=== PATIENT | female | born 1930 | race Caucasian/White ===

== ENCOUNTER 2017-12-28 22:00 | Inpatient (IN) ==
[2017-12-28 22:28] LABS: Basophils # 0.1 10*3/uL (0.0-0.2); Basophils % 0.6 % (0.0-0.8); Eosinophils # 0.2 10*3/uL (0.0-0.87); Eosinophils % 2.3 % (0.00-10.9); Hematocrit 32.5 VOL% (35.7-47.0); Hemoglobin 10.6 GM/DL (12.0-16.0); Immature Granulocytes Absolute 0.08 #; Lymphocytes # 1.5 10*3/uL (1.4-4.0); Lymphocytes % 19.1 % (21.3-54.2); Mean Corpuscular HGB Conc 32.6 GM/DL (32-36); Mean Corpuscular Hemoglobin 31 PG (27-34); Mean Corpuscular Volume 94.8 FL (87-102); Mean Platelet Volume 11.4 FL (9.6-12.0); Monocytes # 0.6 10*3/uL (0.11-0.8); Monocytes % 8.1 % (1.7-12.7); Neutrophils # 5.5 10*3/uL (1.4-7.4); Neutrophils % 68.9 % (38.7-73.9); Platelet Count 263 T/CUMM (130-400); Red Blood Count 3.43 MC/CUMM (3.8-5.5); Red Cell Distribution Width 12.3 % (9.3-17.3); White Blood Count 7.9 T/CUMM (4-12)
[2017-12-28 22:35] LABS: PT Patient Result 10.3 SECS; Partial Thromboplastin Time 25.2 SECS (0-40)
[2017-12-28] MEDS ORDERED: MORPHINE 4 MG/1 ML VIAL IV STA (22:43)
[2017-12-28 22:50] LABS: Alanine Aminotransferase 16 U/L (13-56); Albumin 3.3 G/DL (3.4-5.0); Alkaline Phosphatase 100 U/L (45-117); Aspartate Amino Transferase 29 U/L (0-37); Bilirubin,Total < 0.39 MG/DL (0.2-1.0); Blood Urea Nitrogen 19 MG/DL (7-18); Calcium 8.5 MG/DL (8.5-10.1); Glucose 122 MG/DL (74-106); Osmolality,Calculated 279.5 MOS/KG (273-304); Sodium 139 MMOL/L (136-145); Total Protein 6.2 G/DL (6.4-8.3)
[2017-12-28 22:52] LABS: Apearance,Urine CLEAR (Clear); Bilirubin,Urine Negative (Negative); Blood, Urine Negative (Negative); Glucose,Urine (UA) Negative (Negative); Ketones,Urine Negative (Negative); Mucus,Urine Occasional /LPF (Occasional); Nitrite,Urine Negative (Negative); Protein,Urine Negative; RBC,Urine 1 /HPF (0-4); Urine Color Yellow (Yellow); Urine Specific Gravity 1.011 (1.001-1.035); Urine Urobilinogen < 2.0 EU/DL (0.2-1.0); WBC,Urine <1 /HPF (0-6)
[2017-12-29] MEDS ORDERED: hydrALAZINE 20 MG/1 ML VIAL IV PRN ×2 (00:01→01:16)
[2017-12-29] MEDS ORDERED: ONDANSETRON 4 MG/2 ML VIAL IV PRN (01:11)
[2017-12-29] MEDS: MORPHINE 4 MG/1 ML VIAL IV PRN ×4 (02:29→21:15)
[2017-12-29] MEDS: SODIUM CHLORIDE 0.9% 1,000 ML IV SCH ×3 (02:29→19:52)
[2017-12-29 05:39] LABS: Basophils # 0.1 10*3/uL (0.0-0.2); Basophils % 0.4 % (0.0-0.8); Eosinophils % 0.1 % (0.00-10.9); Hematocrit 28.3 VOL% (35.7-47.0); Hemoglobin 9.3 GM/DL (12.0-16.0); Immature Granulocytes % 0.6 %; Immature Granulocytes Absolute 0.08 #; Lymphocytes # 0.8 10*3/uL (1.4-4.0); Lymphocytes % 5.5 % (21.3-54.2); Mean Corpuscular HGB Conc 32.9 GM/DL (32-36); Mean Corpuscular Hemoglobin 31 PG (27-34); Mean Corpuscular Volume 93.7 FL (87-102); Mean Platelet Volume 11.2 FL (9.6-12.0); Monocytes # 0.9 10*3/uL (0.11-0.8); Monocytes % 6.7 % (1.7-12.7); Neutrophils # 11.9 10*3/uL (1.4-7.4); Neutrophils % 86.7 % (38.7-73.9); Platelet Count 219 T/CUMM (130-400); Red Blood Count 3.02 MC/CUMM (3.8-5.5); Red Cell Distribution Width 12.3 % (9.3-17.3); White Blood Count 13.7 T/CUMM (4-12)
[2017-12-29 06:06] LABS: Calcium 8.3 MG/DL (8.5-10.1); Osmolality,Calculated 278.7 MOS/KG (273-304); Potassium 3.8 MMOL/L (3.5-5.1)
[2017-12-29] MEDS: NEBIVOLOL 10 MG TABLET PO SCH (09:16)
[2017-12-29] MEDS: LISINOPRIL 20 MG TABLET PO SCH (09:16)
[2017-12-29] MEDS: ENOXAPARIN 40 MG/0.4 ML SYRINGE SUBCUT SCH (11:20)
[2017-12-29] MEDS: MEMANTINE 10 MG TABLET PO SCH ×2 (11:20→21:15)
[2017-12-29 13:09] LABS: Apearance,Urine CLEAR (Clear); Bilirubin,Urine Negative (Negative); Blood, Urine Small mg/dL (Negative); Glucose,Urine (UA) Negative (Negative); Ketones,Urine Negative (Negative); Mucus,Urine Occasional /LPF (Occasional); Nitrite,Urine Negative (Negative); Protein,Urine Negative; RBC,Urine 2 /HPF (0-4); Squamous Epithelial Cell,Urine Occasional /HPF (0-10); Urine Color Yellow (Yellow); Urine Specific Gravity 1.013 (1.001-1.035); Urine Urobilinogen < 2.0 EU/DL (0.2-1.0); WBC,Urine 7 /HPF (0-6)
[2017-12-29] MEDS ORDERED: ceFAZolin 1,000 MG VIAL ONE (13:25)
[2017-12-29 14:55] LABS: Basophils % 0.3 % (0.0-0.8); Eosinophils % 0.2 % (0.00-10.9); Hematocrit 27.8 VOL% (35.7-47.0); Hemoglobin 9.1 GM/DL (12.0-16.0); Immature Granulocytes % 0.4 %; Immature Granulocytes Absolute 0.05 #; Mean Corpuscular HGB Conc 32.7 GM/DL (32-36); Mean Corpuscular Hemoglobin 31 PG (27-34); Mean Corpuscular Volume 93.3 FL (87-102); Mean Platelet Volume 11.9 FL (9.6-12.0); Monocytes % 8.9 % (1.7-12.7); Neutrophils # 9.2 10*3/uL (1.4-7.4); Neutrophils % 81.2 % (38.7-73.9); Platelet Count 232 T/CUMM (130-400); Red Blood Count 2.98 MC/CUMM (3.8-5.5); Red Cell Distribution Width 12.4 % (9.3-17.3); White Blood Count 11.3 T/CUMM (4-12)
[2017-12-29] MEDS ORDERED: MIDAZOLAM 2 MG/2 ML VIAL ONE (15:00)
[2017-12-29] MEDS ORDERED: KETAMINE 500 MG/10 ML VIAL ONE (15:00)
[2017-12-29] MEDS ORDERED: FUROSEMIDE 20 MG/2 ML VIAL ONE (15:00)
[2017-12-29] MEDS ORDERED: BUPIVACAINE SPINAL 0.75% 2 ML AMP SPINAL ONE (15:00)
[2017-12-29] MEDS ORDERED: ETOMIDATE 40 MG/20 ML VIAL IV ONE (15:00)
[2017-12-29] MEDS ORDERED: PHENYLEPHRINE 1 MG/10 ML SYRINGE IV ONE (15:01)
[2017-12-29] MEDS: DONEPEZIL 10 MG TABLET PO SCH (21:15)
[2017-12-29] MEDS: SIMVASTATIN 20 MG TABLET PO SCH (21:15)
[2017-12-30] MEDS: MORPHINE 4 MG/1 ML VIAL IV PRN ×6 (04:37→23:54)
[2017-12-30] MEDS: SODIUM CHLORIDE 0.9% 1,000 ML IV SCH ×3 (04:38→20:38)
[2017-12-30 05:46] LABS: Basophils % 0.2 % (0.0-0.8); Eosinophils % 0.1 % (0.00-10.9); Hematocrit 22.5 VOL% (35.7-47.0); Hemoglobin 7.3 GM/DL (12.0-16.0); Immature Granulocytes % 0.5 %; Immature Granulocytes Absolute 0.06 #; Lymphocytes # 0.9 10*3/uL (1.4-4.0); Mean Corpuscular HGB Conc 32.4 GM/DL (32-36); Mean Corpuscular Hemoglobin 30 PG (27-34); Mean Corpuscular Volume 93.4 FL (87-102); Mean Platelet Volume 11.1 FL (9.6-12.0); Monocytes # 1.5 10*3/uL (0.11-0.8); Monocytes % 12.7 % (1.7-12.7); Neutrophils # 9.6 10*3/uL (1.4-7.4); Neutrophils % 79.5 % (38.7-73.9); Platelet Count 191 T/CUMM (130-400); Red Blood Count 2.41 MC/CUMM (3.8-5.5); Red Cell Distribution Width 12.4 % (9.3-17.3); White Blood Count 12.1 T/CUMM (4-12)
[2017-12-30] MEDS: NEBIVOLOL 10 MG TABLET PO SCH (09:15)
[2017-12-30] MEDS: LISINOPRIL 20 MG TABLET PO SCH (09:15)
[2017-12-30] MEDS: MEMANTINE 10 MG TABLET PO SCH ×2 (09:15→20:05)
[2017-12-30] MEDS: ENOXAPARIN 40 MG/0.4 ML SYRINGE SUBCUT SCH (09:17)
[2017-12-30] MEDS ORDERED: ACETAMINOPHEN 325 MG TABLET PO PRN (15:16)
[2017-12-30 16:57] LABS: Basophils % 0.1 % (0.0-0.8); Eosinophils % 0.1 % (0.00-10.9); Hematocrit 20.1 VOL% (35.7-47.0); Hemoglobin 6.6 GM/DL (12.0-16.0); Immature Granulocytes % 0.7 %; Lymphocytes # 0.8 10*3/uL (1.4-4.0); Lymphocytes % 5.7 % (21.3-54.2); Mean Corpuscular HGB Conc 32.8 GM/DL (32-36); Mean Corpuscular Hemoglobin 31 PG (27-34); Mean Corpuscular Volume 93.5 FL (87-102); Mean Platelet Volume 11.9 FL (9.6-12.0); Monocytes # 1.8 10*3/uL (0.11-0.8); Monocytes % 12.8 % (1.7-12.7); Neutrophils # 11.6 10*3/uL (1.4-7.4); Neutrophils % 80.6 % (38.7-73.9); Platelet Count 195 T/CUMM (130-400); Red Blood Count 2.15 MC/CUMM (3.8-5.5); Red Cell Distribution Width 12.5 % (9.3-17.3); White Blood Count 14.4 T/CUMM (4-12)
[2017-12-30] MEDS ORDERED: SODIUM CHLORIDE 0.9% 1,000 ML IV PRN (19:06)
[2017-12-30] MEDS: DONEPEZIL 10 MG TABLET PO SCH (20:04)
[2017-12-30] MEDS: SIMVASTATIN 20 MG TABLET PO SCH (20:05)
[2017-12-31] MEDS: MORPHINE 4 MG/1 ML VIAL IV PRN ×5 (04:49→20:54)
[2017-12-31] MEDS: SODIUM CHLORIDE 0.9% 1,000 ML IV SCH ×2 (04:50→05:51)
[2017-12-31 07:16] LABS: Basophils % 0.2 % (0.0-0.8); Eosinophils % 0.2 % (0.00-10.9); Hematocrit 31.5 VOL% (35.7-47.0); Hemoglobin 10.5 GM/DL (12.0-16.0); Immature Granulocytes Absolute 0.12 #; Lymphocytes # 0.7 10*3/uL (1.4-4.0); Lymphocytes % 5.5 % (21.3-54.2); Mean Corpuscular HGB Conc 33.3 GM/DL (32-36); Mean Corpuscular Hemoglobin 30 PG (27-34); Mean Platelet Volume 11.5 FL (9.6-12.0); Monocytes # 1.3 10*3/uL (0.11-0.8); Monocytes % 10.9 % (1.7-12.7); Neutrophils # 10.2 10*3/uL (1.4-7.4); Neutrophils % 82.2 % (38.7-73.9); Platelet Count 171 T/CUMM (130-400); Red Cell Distribution Width 14.1 % (9.3-17.3); White Blood Count 12.4 T/CUMM (4-12)
[2017-12-31] MEDS: MEMANTINE 10 MG TABLET PO SCH ×2 (08:15→20:54)
[2017-12-31] MEDS: ENOXAPARIN 40 MG/0.4 ML SYRINGE SUBCUT SCH (08:16)
[2017-12-31] MEDS: NEBIVOLOL 10 MG TABLET PO SCH (08:16)
[2017-12-31] MEDS: LISINOPRIL 20 MG TABLET PO SCH (08:16)
[2017-12-31] MEDS ORDERED: ZINC OXIDE PASTE 113 GM TUBE TOP PRN (12:24)
[2017-12-31] MEDS ORDERED: TUBERCULIN SKIN TEST 0.1 ML SYRINGE INTRADERM ONE (16:23)
[2017-12-31] MEDS: DONEPEZIL 10 MG TABLET PO SCH (20:54)
[2017-12-31] MEDS: SIMVASTATIN 20 MG TABLET PO SCH (20:54)
[2018-01-01] MEDS ORDERED: ZIPRASIDONE 20 MG/1 ML VIAL IM ONE (01:30)
[2018-01-01] MEDS: SODIUM CHLORIDE 0.9% 1,000 ML IV SCH ×3 (05:10→19:59)
[2018-01-01] MEDS: ENOXAPARIN 40 MG/0.4 ML SYRINGE SUBCUT SCH (09:35)
[2018-01-01] MEDS: MEMANTINE 10 MG TABLET PO SCH (09:35)
[2018-01-01] MEDS: LISINOPRIL 20 MG TABLET PO SCH (09:35)
[2018-01-01] MEDS: NEBIVOLOL 10 MG TABLET PO SCH (09:35)
[2018-01-01] MEDS ORDERED: LORazepam 2 MG/1 ML VIAL IV PRN (13:15)
[2018-01-01] MEDS: QUEtiapine 25 MG TABLET PO SCH (13:48)
[2018-01-02] MEDS: SIMVASTATIN 20 MG TABLET PO SCH (00:18)
[2018-01-02] MEDS: MEMANTINE 10 MG TABLET PO SCH ×2 (00:18→08:43)
[2018-01-02] MEDS: QUEtiapine 25 MG TABLET PO SCH (00:18)
[2018-01-02] MEDS: DONEPEZIL 10 MG TABLET PO SCH (00:18)
[2018-01-02] MEDS: SODIUM CHLORIDE 0.9% 1,000 ML IV SCH (05:08)
[2018-01-02 06:03] LABS: Basophils % 0.2 % (0.0-0.8); Eosinophils # 0.2 10*3/uL (0.0-0.87); Eosinophils % 2.2 % (0.00-10.9); Hematocrit 27.1 VOL% (35.7-47.0); Hemoglobin 9.4 GM/DL (12.0-16.0); Immature Granulocytes % 0.6 %; Immature Granulocytes Absolute 0.06 #; Lymphocytes # 0.6 10*3/uL (1.4-4.0); Lymphocytes % 6.4 % (21.3-54.2); Mean Corpuscular HGB Conc 34.7 GM/DL (32-36); Mean Corpuscular Hemoglobin 31 PG (27-34); Mean Corpuscular Volume 88.9 FL (87-102); Mean Platelet Volume 11.5 FL (9.6-12.0); Monocytes # 0.8 10*3/uL (0.11-0.8); Monocytes % 8.5 % (1.7-12.7); Neutrophils % 82.1 % (38.7-73.9); Platelet Count 214 T/CUMM (130-400); Red Blood Count 3.05 MC/CUMM (3.8-5.5); Red Cell Distribution Width 13.8 % (9.3-17.3); White Blood Count 9.7 T/CUMM (4-12)
[2018-01-02 06:32] LABS: Calcium 7.9 MG/DL (8.5-10.1); Osmolality,Calculated 275.8 MOS/KG (273-304); Potassium 3.5 MMOL/L (3.5-5.1)
[2018-01-02] MEDS: MORPHINE 4 MG/1 ML VIAL IV PRN (06:33)
[2018-01-02] MEDS: NEBIVOLOL 10 MG TABLET PO SCH (08:35)
[2018-01-02] MEDS: ENOXAPARIN 40 MG/0.4 ML SYRINGE SUBCUT SCH (08:36)
[2018-01-02] MEDS: LISINOPRIL 20 MG TABLET PO SCH (08:38)
[2018-01-02] MEDS ORDERED: DENOSUMAB 120 MG/1.7 ML VIAL SUBCUT ONE (10:05)
[2018-01-02 12:08] VITALS: BP 134/58
== END 2018-01-02 13:05 | DRG 481 ==
LOC: N.ED 22:00 → N.EDINP 12-29 01:11 → SUATTDRO 12-29 01:11 → N.3E 12-29 01:40
PROVIDERS: ADMIT Internal Medicine; ATTEND Internal Medicine